=== PATIENT | male | born 1975 | race Caucasian/White ===

== ENCOUNTER 2022-03-07 23:43 | Emergency (ER) | payer SELFPAY ==
[2022-03-07 23:55] VITALS: RESP 16; BMI 25.1
[2022-03-08 07:00] VITALS: BP 114/79; PULSE 74; TEMP 97.6
== END 2022-03-08 07:02 | disposition home or self-care (01) ==
LOC: FER 23:43
DX: F10.920 Alcohol use, unspecified with intoxication, uncomplicated (principal)
CPT/HCPCS: 99281-25